=== PATIENT | male | born 1955 | race Caucasian/White ===

== ENCOUNTER 2023-04-03 09:55 | Day surgery (SDC) | payer OTHER, MEDICARE ==
[2023-03-29 15:36] VITALS: BMI 22.4
[2023-04-03] MEDS ORDERED: BSS (NA/CA/MG/K) BALANCED SALT SOLUTION OPHTH SOLN 15 ML BOTTLE ONE (10:15)
[2023-04-03] MEDS ORDERED: NEO/POLYMYX B SULF/DEXAMETH OPHTHALMIC 5ML BOTTLE ONE (10:15)
[2023-04-03] MEDS ORDERED: CARBACHOL 0.01% INTRA-OCULAR 1.5 ML VIAL ONE (10:15)
[2023-04-03] MEDS: TROPICAMIDE 1% OPHTH SOLN 15 ML BOTTLE ONE ×3 (10:50→11:00)
[2023-04-03] MEDS: CIPROFLOXACIN 0.3% EYE DROPS 5 ML BOTTLE ONE ×3 (10:50→11:00)
[2023-04-03] MEDS: PHENYLEPHRINE 2.5% OPTHALMIC DROP 2ML BOTTLE ONE ×3 (10:50→11:00)
[2023-04-03] MEDS: CYCLOPENTOLATE 2% OPHTH SOLN 2 ML BOTTLE ONE ×3 (10:50→11:00)
[2023-04-03] MEDS ORDERED: MIDAZOLAM HCL 2 MG/2 ML SINGLE DOSE VIAL ONE (12:23)
[2023-04-03 13:12] VITALS: RESP 18; TEMP 98.1
[2023-04-03 13:35] VITALS: BP 119/55; PULSE 74
== END 2023-04-03 13:30 | disposition home or self-care (01) ==
LOC: FASU 09:55
PROVIDERS: ATTEND Ophthalmology
PROC: 08RK3JZ Replacement of Left Lens with Synthetic Substitute, Percutaneous Approach (ICD-10-PCS; principal; 2023-04-03 12:43)
DX: H26.8 Other specified cataract (principal)
CPT/HCPCS: 66984; V2632; 82962

== ENCOUNTER 2023-04-17 06:29 | Day surgery (SDC) | payer OTHER, MEDICARE ==
[2023-04-11 14:36] VITALS: BMI 22.4
[2023-04-17] MEDS ORDERED: PHENYLEPHRINE 2.5% OPTHALMIC DROP 2ML BOTTLE ONE (06:43)
[2023-04-17] MEDS ORDERED: TROPICAMIDE 1% OPHTH SOLN 15 ML BOTTLE ONE (06:43)
[2023-04-17] MEDS ORDERED: CYCLOPENTOLATE 2% OPHTH SOLN 2 ML BOTTLE ONE (06:43)
[2023-04-17] MEDS ORDERED: CIPROFLOXACIN 0.3% EYE DROPS 5 ML BOTTLE ONE (06:43)
[2023-04-17] MEDS ORDERED: PHENYLEPHRINE 2.5% OPHTH SOLN 15 ML BOTTLE OD ONE ×3 (07:00→07:10)
[2023-04-17] MEDS ORDERED: CIPROFLOXACIN 0.3% EYE DROPS 5 ML BOTTLE OD ONE ×3 (07:00→07:10)
[2023-04-17] MEDS ORDERED: TROPICAMIDE 1% OPHTH SOLN 15 ML BOTTLE OD ONE ×3 (07:00→07:10)
[2023-04-17] MEDS ORDERED: CYCLOPENTOLATE 2% OPHTH SOLN 2 ML BOTTLE OD ONE ×2 (07:05→07:10)
[2023-04-17] MEDS ORDERED: EPINEPHrine/PF 1 MG/1 ML (1:1,000) AMPULE ONE (07:06)
[2023-04-17] MEDS ORDERED: PHENYLEPHRINE/KETOROLAC 4 ML VIAL IO ONE (07:06)
[2023-04-17 07:07] VITALS: TEMP 97.4
[2023-04-17] MEDS ORDERED: BSS (NA/CA/MG/K) BALANCED SALT SOLUTION OPHTH SOLN 15 ML BOTTLE ONE (07:07)
[2023-04-17] MEDS ORDERED: LIDOCAINE HCL/PF 1% SDV 5ML VIAL ONE (07:07)
[2023-04-17] MEDS ORDERED: CARBACHOL 0.01% INTRA-OCULAR 1.5 ML VIAL ONE (07:07)
[2023-04-17] MEDS ORDERED: LIDOCAINE 1% P/F 10 MG/ML VIAL ONE (07:07)
[2023-04-17] MEDS ORDERED: TRYPAN BLUE 0.5 ML DISP.SYRIN ONE (07:07)
[2023-04-17] MEDS ORDERED: TETRACAINE 0.5% OPHTH SOLN 2 ML BOTTLE ONE (07:07)
[2023-04-17] MEDS ORDERED: ACETYLCHOLINE 1:100 INTRA-OCUL 20 MG/2 ML KIT ONE (07:07)
[2023-04-17] MEDS ORDERED: NEO/POLYMYX B SULF/DEXAMETH OPHTHALMIC 5ML BOTTLE ONE (07:08)
[2023-04-17] MEDS ORDERED: MIDAZOLAM HCL 2 MG/2 ML SINGLE DOSE VIAL ONE (07:57)
[2023-04-17 08:48] VITALS: RESP 18
[2023-04-17 09:13] VITALS: BP 120/80; PULSE 69
== END 2023-04-17 09:15 | disposition home or self-care (01) ==
LOC: FASU 06:29
PROVIDERS: ATTEND Ophthalmology
PROC: 08RJ3JZ Replacement of Right Lens with Synthetic Substitute, Percutaneous Approach (ICD-10-PCS; principal; 2023-04-17 08:28)
DX: H26.8 Other specified cataract (principal)
CPT/HCPCS: 66984; V2632; 82962; J1097